=== PATIENT | female | born 1990 | race Native Hawaiian/Other Pacific Islander ===

== ENCOUNTER 2018-03-31 19:12 | Inpatient (IN) | payer MEDICAID ==
[~2018-03-31] VITALS: Ht 175.3 cm; Wt 165.7 kg
[2018-03-31 20:05] LABS: INFLUENZA TYPE A NEGATIVE FOR TYPE A (NEGATIVE); INFLUENZA TYPE B NEGATIVE FOR TYPE B (NEGATIVE)
[2018-03-31] MEDS ORDERED: ALBUTEROL SULFATE 2.5 MG/0.5 ML NEB SOLUTION NEB ONE (21:30)
[2018-03-31] MEDS ORDERED: SODIUM CHLORIDE 0.9% 1,000 ML IV ONE (21:30)
[2018-03-31] MEDS ORDERED: IPRATROPIUM BROMIDE 0.5 MG/2.5 ML NEB SOLUTION NEB ONE (21:30)
[2018-03-31] MEDS ORDERED: CloNIDine HCL 0.2 MG TABLET PO ONE (21:45)
[2018-03-31 21:58] LABS: LYMPHOCYTES # (AUTO) 1.1 K/uL (1.0-4.8); MONOCYTES # (AUTO) 0.4 K/uL (0.1-1.0); RED CELL DISTRIBUTION WIDTH 16.6 % (11.5-14.5)
[2018-03-31 22:02] LABS: BASOPHILS % (AUTO) 0.6 % (0.0-2.0); EOSINOPHILS % (AUTO) 1.9 % (1.0-6.0); LYMPHOCYTES % (AUTO) 16.5 % (22.0-44.0); MEAN CORPUSCULAR HEMOGLOBIN 22.9 pg (26.0-34.0); MEAN CORPUSCULAR HGB CONC 31.9 G/dL (31.0-37.0); MEAN CORPUSCULAR VOLUME 72 fL (80-100); PLATELET COUNT (AUTO) 227 K/uL (150-450); RED BLOOD CELL COUNT(AUTO) 2.54 MIL/uL (4.00-5.20)
[2018-03-31 22:06] LABS: HEMATOCRIT 18.2 % (36-46); HEMOGLOBIN 5.8 g/dL (12.0-16.0)
[2018-03-31 22:07] LABS: ANION GAP 19 mmol/L (8-16); CALCIUM, TOTAL 8.1 mg/dL (8.8-10.5); CARBON DIOXIDE 15 mmol/L (22-29); CHLORIDE 100 mmol/L (98-107); CREATININE 14.42 mg/dL (0.60-1.30); GLOMERULAR FILTR. RATE CALC 3 mL/min (>60); GLUCOSE,RANDOM 88 mg/dL (70-110); POTASSIUM 5.3 mmol/L (3.5-5.1); SODIUM SERUM 134 mmol/L (136-145); UREA NITROGEN, BLOOD 86 mg/dL (7-18)
[2018-03-31 22:18] LABS: ALANINE AMINOTRANSFERASE 18 U/L (12-78); ALBUMIN 2.7 g/dL (3.4-5.0); ALKALINE PHOSPHATASE 44 U/L (46-116); ASPARTATE AMINOTRANSFERASE 15 U/L (15-37); BILIRUBIN,TOTAL 0.3 mg/dL (0.1-1.0); HCG,QUANTITATIVE < 1 mIU/mL (0-6); TOTAL PROTEIN, SERUM 6.7 g/dL (6.4-8.2)
[2018-03-31] MEDS ORDERED: AZITHROMYCIN 250 MG TABLET PO ONE (22:30)
[2018-03-31 22:46] LABS: APPEARANCE,URINE CLOUDY (CLEAR); BILIRUBIN,URINE NEGATIVE (NEGATIVE); GLUCOSE, URINE (UA) NEGATIVE (NEGATIVE); KETONES,URINE NEGATIVE (NEGATIVE); LEUKOCYTE ESTERASE ,URINE TRACE (NEGATIVE); NITRATE,URINE NEGATIVE (NEGATIVE); OCCULT BLOOD,URINE LARGE (NEGATIVE); PROTEIN,URINE SEE CONFIRM (NEGATIVE); UROBILINOGEN,URINE 0.2 mg/dL (<=1.0)
[2018-03-31 23:03] LABS: RBC,URINE 51-100 /HPF (0-2)
[2018-03-31 23:04] LABS: BACTERIA,URINE Moderate /HPF (None Seen); WBC,URINE 26-50 /HPF (0-5)
[2018-03-31 23:05] LABS: SQUAMOUS EPITHELIAL CELL,UR Moderate /LPF (None Seen)
[2018-03-31 23:06] LABS: FINE GRANULAR CASTS,URINE 0-2 /LPF (None Seen); HYALINE CASTS, URINE 0-2 /LPF (None Seen); SULFOSALICYLIC ACID,URINE 4+ (Negative)
[2018-03-31 23:19] LABS: D-DIMER 4.16 mg/L FEU (0.00-0.50); PROTHROMBIN TIME 10.3 SEC (9.4-11.6)
[2018-03-31 23:42] VITALS: BP 140/74
[2018-03-31 23:47] VITALS: BP 134/79
[2018-04-01] VITALS (18 sets, daily range): BP systolic 131–160; BP diastolic 56–111
[2018-04-01 00:10] LABS: OCCULT BLOOD,GASTRIC FLUID POSITIVE (NEGATIVE)
[2018-04-01] MEDS ORDERED: ENOXAPARIN SODIUM 80 MG/0.8 ML PF SYRINGE SQ ONE (00:15)
[2018-04-01] MEDS ORDERED: PENTETATE DTPA TC99M/MCL ISOTOPE 1 EA INJ INJ ONE (02:20)
[2018-04-01] MEDS ORDERED: MAA ALBUMIN AGGREGATED TC99M/UD<10MCL ISOTOPE 1 EA INJ INJ ONE (02:35)
[2018-04-01] MEDS ORDERED: FUROSEMIDE 20 MG TABLET PO ONE (05:00)
[2018-04-01] MEDS ORDERED: AMOX TR/POT CLAV 875 MG/125 MG TABLET PO ONE (05:00)
[2018-04-01 05:54] LABS: CALCIUM, TOTAL 7.9 mg/dL (8.8-10.5); CREATININE 14.35 mg/dL (0.60-1.30); POTASSIUM 5.6 mmol/L (3.5-5.1)
[2018-04-01 06:46] LABS: BASOPHILS % (AUTO) 0.5 % (0.0-2.0); EOSINOPHILS % (AUTO) 2.1 % (1.0-6.0); LYMPHOCYTES # (AUTO) 1.2 K/uL (1.0-4.8); LYMPHOCYTES % (AUTO) 19.4 % (22.0-44.0); MEAN CORPUSCULAR HEMOGLOBIN 23.8 pg (26.0-34.0); MEAN CORPUSCULAR HGB CONC 31.8 G/dL (31.0-37.0); MEAN CORPUSCULAR VOLUME 75 fL (80-100); MONOCYTES # (AUTO) 0.4 K/uL (0.1-1.0); MONOCYTES % (AUTO) 6.8 % (2.0-9.0); NEUTROPHILS # (AUTO) 4.5 K/uL (1.8-7.7); NEUTROPHILS % (AUTO) 71.2 % (40.0-70.0); PLATELET COUNT (AUTO) 199 K/uL (150-450); RED BLOOD CELL COUNT(AUTO) 2.49 MIL/uL (4.00-5.20); RED CELL DISTRIBUTION WIDTH 17.2 % (11.5-14.5)
[2018-04-01 06:47] LABS: HEMOGLOBIN 5.9 g/dL (12.0-16.0)
[2018-04-01 06:48] LABS: HEMATOCRIT 18.6 % (36-46)
[2018-04-01 08:56] LABS: EOSINOPHILS % (AUTO) 2.7 % (1.0-6.0); HEMATOCRIT 21.9 % (36-46); HEMOGLOBIN 7.1 g/dL (12.0-16.0); LYMPHOCYTES # (AUTO) 1.4 K/uL (1.0-4.8); MEAN CORPUSCULAR HEMOGLOBIN 24.6 pg (26.0-34.0); MEAN CORPUSCULAR HGB CONC 32.3 G/dL (31.0-37.0); MEAN CORPUSCULAR VOLUME 76 fL (80-100); MONOCYTES # (AUTO) 0.4 K/uL (0.1-1.0); MONOCYTES % (AUTO) 6.5 % (2.0-9.0); NEUTROPHILS # (AUTO) 4.6 K/uL (1.8-7.7); NEUTROPHILS % (AUTO) 68.8 % (40.0-70.0); PLATELET COUNT (AUTO) 220 K/uL (150-450); RED BLOOD CELL COUNT(AUTO) 2.88 MIL/uL (4.00-5.20)
[2018-04-01 10:05] LABS: ALBUMIN 2.6 g/dL (3.4-5.0); BILIRUBIN,DIRECT 0.1 mg/dL (0.00-0.20); BILIRUBIN,TOTAL 0.5 mg/dL (0.1-1.0); TOTAL PROTEIN, SERUM 6.6 g/dL (6.4-8.2)
[2018-04-01] MEDS ORDERED: SODIUM CHLORIDE 0.9% 100 ML ONE (10:15)
[2018-04-01] MEDS: CefTRIAXone 1 GM/DEXTROSE 50 ML IV SCH (10:29)
[2018-04-01] MEDS: VITAMIN B COMP/VIT C/FOLIC ACID CAPSULE PO SCH (10:29)
[2018-04-01] MEDS: SOD FERRIC GLUC COMPLX/SUCROSE 125 MG in SODIUM CHLORIDE 0.9% 100 ML IV SCH (11:43)
[2018-04-01] MEDS ORDERED: FERROUS SULFATE 325 MG EC TABLET PO SCH (12:00)
[2018-04-01] MEDS ORDERED: SODIUM POLYSTYRENE SULFONATE 15 GM/60 ML SUSPENSION BOTTLE PO ONE (12:15)
[2018-04-02] VITALS (10 sets, daily range): BP systolic 145–181; BP diastolic 89–112
[2018-04-02 07:06] LABS: BASOPHILS % (AUTO) 0.5 % (0.0-2.0); EOSINOPHILS % (AUTO) 1.8 % (1.0-6.0); HEMATOCRIT 21.2 % (36-46); LYMPHOCYTES # (AUTO) 0.8 K/uL (1.0-4.8); LYMPHOCYTES % (AUTO) 11.2 % (22.0-44.0); MEAN CORPUSCULAR HEMOGLOBIN 24.4 pg (26.0-34.0); MEAN CORPUSCULAR HGB CONC 32.3 G/dL (31.0-37.0); MEAN CORPUSCULAR VOLUME 75 fL (80-100); MONOCYTES # (AUTO) 0.6 K/uL (0.1-1.0); MONOCYTES % (AUTO) 7.4 % (2.0-9.0); NEUTROPHILS # (AUTO) 5.9 K/uL (1.8-7.7); NEUTROPHILS % (AUTO) 79.1 % (40.0-70.0); PLATELET COUNT (AUTO) 207 K/uL (150-450); RED CELL DISTRIBUTION WIDTH 17.9 % (11.5-14.5)
[2018-04-02 07:26] LABS: HEMOGLOBIN 6.8 g/dL (12.0-16.0)
[2018-04-02] MEDS: VITAMIN B COMP/VIT C/FOLIC ACID CAPSULE PO SCH (07:49)
[2018-04-02] MEDS: CefTRIAXone 1 GM/DEXTROSE 50 ML IV SCH (07:50)
[2018-04-02] MEDS ORDERED: SODIUM CHLORIDE 0.9% 250 ML IV ONE (08:28)
[2018-04-02] MEDS ORDERED: SODIUM CHLORIDE 0.9% 1,000 ML IV ONE ×2 (10:00→10:29)
[2018-04-02 11:23] LABS: HIV 1-2 SCREEN 4TH GEN W/RFLX Non Reactive (Non Reactive)
[2018-04-02] MEDS ORDERED: SODIUM POLYSTYRENE SULFONATE 15 GM/60 ML SUSPENSION BOTTLE PO ONE ×2 (11:45→13:45)
[2018-04-02] MEDS ORDERED: MIDAZOLAM HCL 2 MG/2 ML VIAL IVP ONE (12:00)
[2018-04-02 12:37] LABS: CALCIUM, TOTAL 8.2 mg/dL (8.8-10.5); CREATININE 15.29 mg/dL (0.60-1.30); POTASSIUM 5.8 mmol/L (3.5-5.1)
[2018-04-02] MEDS: SOD FERRIC GLUC COMPLX/SUCROSE 125 MG in SODIUM CHLORIDE 0.9% 100 ML IV SCH (13:38)
[2018-04-02] MEDS: EPOETIN ALFA 10,000 UNITS/ML VIAL SQ SCH (13:39)
[2018-04-02] MEDS: FAMOTIDINE 20 MG TABLET PO SCH (21:25)
[2018-04-02 21:59] LABS: CREATININE,SERUM FOR CRCL 15.29 mg/dL (0.60-1.30)
[2018-04-03 04:38] VITALS: BP 139/94
[2018-04-03 06:58] LABS: BASOPHILS % (AUTO) 0.5 % (0.0-2.0); EOSINOPHILS % (AUTO) 4.1 % (1.0-6.0); HEMATOCRIT 21.5 % (36-46); LYMPHOCYTES # (AUTO) 1.3 K/uL (1.0-4.8); LYMPHOCYTES % (AUTO) 19.9 % (22.0-44.0); MEAN CORPUSCULAR HEMOGLOBIN 24.8 pg (26.0-34.0); MEAN CORPUSCULAR HGB CONC 32.5 G/dL (31.0-37.0); MEAN CORPUSCULAR VOLUME 76 fL (80-100); MONOCYTES # (AUTO) 0.6 K/uL (0.1-1.0); MONOCYTES % (AUTO) 9.7 % (2.0-9.0); NEUTROPHILS # (AUTO) 4.4 K/uL (1.8-7.7); NEUTROPHILS % (AUTO) 65.8 % (40.0-70.0); PLATELET COUNT (AUTO) 188 K/uL (150-450); RED BLOOD CELL COUNT(AUTO) 2.82 MIL/uL (4.00-5.20); RED CELL DISTRIBUTION WIDTH 17.4 % (11.5-14.5)
[2018-04-03 07:15] LABS: CALCIUM, TOTAL 7.8 mg/dL (8.8-10.5); CREATININE 15.44 mg/dL (0.60-1.30); POTASSIUM 5.1 mmol/L (3.5-5.1)
[2018-04-03] MEDS ORDERED: SODIUM CHLORIDE 0.9% 500 ML IV ONE (08:07)
[2018-04-03] MEDS: CefTRIAXone 1 GM/DEXTROSE 50 ML IV SCH (08:15)
[2018-04-03 08:54] VITALS: BP 151/96
[2018-04-03] MEDS ORDERED: LIDOCAINE/PF 1% 30 ML VIAL ONE (09:24)
[2018-04-03] MEDS ORDERED: HEPARIN SODIUM 1000 UNITS/NS 500 ML ONE (09:25)
[2018-04-03] MEDS ORDERED: HEPARIN SODIUM,PORCINE 1,000 UNITS/ML 10 ML VIAL ONE (09:25)
[2018-04-03] MEDS: SOD FERRIC GLUC COMPLX/SUCROSE 125 MG in SODIUM CHLORIDE 0.9% 100 ML IV SCH (09:28)
[2018-04-03] MEDS ORDERED: HEPARIN SODIUM,PORCINE 1,000 UNITS/ML VIAL IVP ONE (11:41)
[2018-04-03 12:08] VITALS: BP 158/96
[2018-04-03] MEDS: FAMOTIDINE 20 MG TABLET PO SCH ×2 (12:20→21:00)
[2018-04-03] MEDS: VITAMIN B COMP/VIT C/FOLIC ACID CAPSULE PO SCH (12:20)
[2018-04-03 15:09] VITALS: BP 157/101
[2018-04-03] MEDS ORDERED: SODIUM CHLORIDE 0.9% 1,000 ML IV ONE ×2 (19:31)
[2018-04-03 20:11] VITALS: BP 181/104
[2018-04-04] VITALS (14 sets, daily range): BP systolic 134–160; BP diastolic 67–114
[2018-04-04] MEDS ORDERED: SODIUM CHLORIDE 0.9% 1,000 ML IV ONE ×2 (07:55)
[2018-04-04] MEDS: CefTRIAXone 1 GM/DEXTROSE 50 ML IV SCH (08:15)
[2018-04-04 08:16] LABS: BASOPHILS % (AUTO) 0.5 % (0.0-2.0); EOSINOPHILS % (AUTO) 3.6 % (1.0-6.0); LYMPHOCYTES # (AUTO) 1.2 K/uL (1.0-4.8); LYMPHOCYTES % (AUTO) 21.4 % (22.0-44.0); MEAN CORPUSCULAR HEMOGLOBIN 24.7 pg (26.0-34.0); MEAN CORPUSCULAR HGB CONC 32.9 G/dL (31.0-37.0); MEAN CORPUSCULAR VOLUME 75 fL (80-100); MONOCYTES # (AUTO) 0.5 K/uL (0.1-1.0); MONOCYTES % (AUTO) 8.9 % (2.0-9.0); NEUTROPHILS # (AUTO) 3.7 K/uL (1.8-7.7); NEUTROPHILS % (AUTO) 65.6 % (40.0-70.0); PLATELET COUNT (AUTO) 154 K/uL (150-450); RED CELL DISTRIBUTION WIDTH 17.3 % (11.5-14.5)
[2018-04-04 08:30] LABS: HEMOGLOBIN 6.9 g/dL (12.0-16.0)
[2018-04-04] MEDS: SOD FERRIC GLUC COMPLX/SUCROSE 125 MG in SODIUM CHLORIDE 0.9% 100 ML IV SCH (08:30)
[2018-04-04] MEDS: FAMOTIDINE 20 MG TABLET PO SCH ×2 (09:51→21:20)
[2018-04-04] MEDS: VITAMIN B COMP/VIT C/FOLIC ACID CAPSULE PO SCH (09:51)
[2018-04-04] MEDS: EPOETIN ALFA 10,000 UNITS/ML VIAL SQ SCH (09:52)
[2018-04-04] MEDS ORDERED: HEPARIN SODIUM,PORCINE 1,000 UNITS/ML VIAL IVP ONE ×2 (10:52→12:00)
[2018-04-04] MEDS ORDERED: LIDOCAINE/PF 1% 30 ML VIAL ONE (12:22)
[2018-04-04] MEDS ORDERED: HEPARIN SODIUM,PORCINE 1,000 UNITS/ML 10 ML VIAL ONE (12:22)
[2018-04-04] MEDS ORDERED: HEPARIN SODIUM 1000 UNITS/NS 500 ML ONE (12:22)
[2018-04-04] MEDS ORDERED: FentaNYL CITRATE-PF 100 MCG/2 ML VIAL ONE (13:23)
[2018-04-04] MEDS ORDERED: MIDAZOLAM HCL 2 MG/2 ML VIAL ONE (13:24)
[2018-04-04] MEDS ORDERED: FLUMAZENIL 0.1 MG/ML 5 ML VIAL IVP ONE (13:24)
[2018-04-04] MEDS ORDERED: NALOXONE HCL 0.4 MG/ML VIAL ONE (13:24)
[2018-04-04] MEDS ORDERED: FentaNYL CITRATE-PF 100 MCG/2 ML VIAL IVP ONE (13:56)
[2018-04-04] MEDS ORDERED: MIDAZOLAM HCL 2 MG/2 ML VIAL IVP ONE (13:56)
[2018-04-04] MEDS ORDERED: SODIUM CHLORIDE 0.9% 250 ML IV ONE (16:54)
[2018-04-05 03:48] VITALS: BP 156/103
[2018-04-05 07:20] LABS: BASOPHILS % (AUTO) 0.6 % (0.0-2.0); EOSINOPHILS % (AUTO) 4.1 % (1.0-6.0); HEMATOCRIT 22.7 % (36-46); HEMOGLOBIN 7.6 g/dL (12.0-16.0); LYMPHOCYTES # (AUTO) 1.1 K/uL (1.0-4.8); LYMPHOCYTES % (AUTO) 19.9 % (22.0-44.0); MEAN CORPUSCULAR HEMOGLOBIN 25.5 pg (26.0-34.0); MEAN CORPUSCULAR HGB CONC 33.5 G/dL (31.0-37.0); MEAN CORPUSCULAR VOLUME 76 fL (80-100); MONOCYTES # (AUTO) 0.5 K/uL (0.1-1.0); MONOCYTES % (AUTO) 8.7 % (2.0-9.0); NEUTROPHILS # (AUTO) 3.7 K/uL (1.8-7.7); NEUTROPHILS % (AUTO) 66.7 % (40.0-70.0); PLATELET COUNT (AUTO) 184 K/uL (150-450); RED BLOOD CELL COUNT(AUTO) 2.98 MIL/uL (4.00-5.20); RED CELL DISTRIBUTION WIDTH 17.8 % (11.5-14.5)
[2018-04-05 07:37] LABS: CREATININE 8.79 mg/dL (0.60-1.30); PHOSPHORUS 6.1 mg/dL (2.5-4.9); POTASSIUM 3.6 mmol/L (3.5-5.1)
[2018-04-05] MEDS: SOD FERRIC GLUC COMPLX/SUCROSE 125 MG in SODIUM CHLORIDE 0.9% 100 ML IV SCH (08:30)
[2018-04-05 08:35] VITALS: BP 176/111
[2018-04-05] MEDS: AmLODIPine BESYLATE 10 MG TABLET PO SCH (10:59)
[2018-04-05] MEDS: VITAMIN B COMP/VIT C/FOLIC ACID CAPSULE PO SCH (10:59)
[2018-04-05] MEDS: SEVELAMER CARBONATE 800 MG TABLET PO SCH ×2 (10:59→17:58)
[2018-04-05] MEDS: CefTRIAXone 1 GM/DEXTROSE 50 ML IV SCH (10:59)
[2018-04-05] MEDS: FAMOTIDINE 20 MG TABLET PO SCH ×2 (10:59→20:19)
[2018-04-05] MEDS ORDERED: SODIUM CHLORIDE 0.9% 100 ML ONE (11:04)
[2018-04-05 11:29] VITALS: BP 146/85
[2018-04-05 15:44] VITALS: BP 136/69
[2018-04-05] MEDS ORDERED: HEPARIN SODIUM,PORCINE 1,000 UNITS/ML VIAL IVP ONE (17:43)
[2018-04-05 19:44] VITALS: BP 154/89
[2018-04-05 23:23] VITALS: BP 159/117
[2018-04-06] VITALS (7 sets, daily range): BP systolic 139–161; BP diastolic 88–104
[2018-04-06 07:35] LABS: CALCIUM, TOTAL 8.1 mg/dL (8.8-10.5); POTASSIUM 3.5 mmol/L (3.5-5.1)
[2018-04-06] MEDS: CefTRIAXone 1 GM/DEXTROSE 50 ML IV SCH (08:56)
[2018-04-06] MEDS: FAMOTIDINE 20 MG TABLET PO SCH ×2 (08:57→20:02)
[2018-04-06] MEDS: VITAMIN B COMP/VIT C/FOLIC ACID CAPSULE PO SCH (08:57)
[2018-04-06] MEDS: AmLODIPine BESYLATE 10 MG TABLET PO SCH (08:58)
[2018-04-06] MEDS: SEVELAMER CARBONATE 800 MG TABLET PO SCH ×3 (08:59→17:53)
[2018-04-06] MEDS ORDERED: SODIUM CHLORIDE 0.9% 250 ML IV ONE (09:07)
[2018-04-06] MEDS ORDERED: LOSARTAN POTASSIUM 50 MG TABLET PO ONE (17:15)
[2018-04-07 04:08] VITALS: BP 149/94
[2018-04-07 07:33] LABS: CREATININE 9.79 mg/dL (0.60-1.30); PHOSPHORUS 6.4 mg/dL (2.5-4.9); POTASSIUM 3.6 mmol/L (3.5-5.1)
[2018-04-07 07:36] VITALS: BP 116/83
[2018-04-07] MEDS: SEVELAMER CARBONATE 800 MG TABLET PO SCH ×3 (09:17→17:49)
[2018-04-07] MEDS: VITAMIN B COMP/VIT C/FOLIC ACID CAPSULE PO SCH (09:17)
[2018-04-07] MEDS: LOSARTAN POTASSIUM 50 MG TABLET PO SCH ×2 (09:18→20:30)
[2018-04-07] MEDS: AmLODIPine BESYLATE 10 MG TABLET PO SCH (09:18)
[2018-04-07] MEDS: FAMOTIDINE 20 MG TABLET PO SCH ×2 (09:18→20:30)
[2018-04-07] MEDS: EPOETIN ALFA 10,000 UNITS/ML VIAL SQ SCH (09:19)
[2018-04-07 11:11] VITALS: BP 139/98
[2018-04-07] MEDS: MethylPREDNISolone SOD SUCC 1,000 MG in SODIUM CHLORIDE 0.9% 50 ML IV SCH (13:38)
[2018-04-07 16:56] VITALS: BP 149/102
[2018-04-07 20:09] VITALS: BP 147/103
[2018-04-08] VITALS (10 sets, daily range): BP systolic 133–165; BP diastolic 79–113
[2018-04-08] MEDS: CloNIDine HCL 0.1 MG TABLET PO PRN (00:15)
[2018-04-08] MEDS ORDERED: [UNRECOGNIZED DRUG - REMARK] IV PRN (07:30)
[2018-04-08] MEDS: SEVELAMER CARBONATE 800 MG TABLET PO SCH ×3 (08:00→21:04)
[2018-04-08] MEDS: AmLODIPine BESYLATE 10 MG TABLET PO SCH (09:00)
[2018-04-08] MEDS: VITAMIN B COMP/VIT C/FOLIC ACID CAPSULE PO SCH (09:00)
[2018-04-08] MEDS: FAMOTIDINE 20 MG TABLET PO SCH ×2 (09:00→21:04)
[2018-04-08] MEDS: LOSARTAN POTASSIUM 50 MG TABLET PO SCH ×2 (09:00→21:04)
[2018-04-08 09:59] LABS: PROTHROMBIN TIME 10.6 SEC (9.4-11.6)
[2018-04-08] MEDS ORDERED: FLUMAZENIL 0.1 MG/ML 5 ML VIAL IVP ONE (10:58)
[2018-04-08] MEDS ORDERED: NALOXONE HCL 0.4 MG/ML VIAL ONE (10:58)
[2018-04-08] MEDS ORDERED: FentaNYL CITRATE-PF 100 MCG/2 ML VIAL ONE (10:58)
[2018-04-08] MEDS ORDERED: LIDOCAINE 1%/EPI 1:200,000/PF 10 ML VIAL ONE (10:58)
[2018-04-08] MEDS ORDERED: MIDAZOLAM HCL 2 MG/2 ML VIAL ONE (10:58)
[2018-04-08] MEDS ORDERED: SODIUM BICARBONATE 50 MEQ/50 ML VIAL ONE (10:59)
[2018-04-08] MEDS ORDERED: GELATIN SPONGE,ABSORBABLE 12-7 MM TP ONE (10:59)
[2018-04-08] MEDS ORDERED: CALCIUM GLUCONATE IV PRN (11:00)
[2018-04-08] MEDS ORDERED: SODIUM CHLORIDE 0.9% IV PRN (11:00)
[2018-04-08] MEDS ORDERED: HEPARIN SODIUM,PORCINE 1,000 UNITS/ML VIAL IVP ONE (12:00)
[2018-04-08 12:15] LABS: BASOPHILS % (AUTO) 0.1 % (0.0-2.0); EOSINOPHILS % (AUTO) 0 % (1.0-6.0); HEMATOCRIT 25.2 % (36-46); HEMOGLOBIN 8.2 g/dL (12.0-16.0); LYMPHOCYTES # (AUTO) 0.7 K/uL (1.0-4.8); LYMPHOCYTES % (AUTO) 7.9 % (22.0-44.0); MEAN CORPUSCULAR HGB CONC 32.5 G/dL (31.0-37.0); MEAN CORPUSCULAR VOLUME 77 fL (80-100); MONOCYTES # (AUTO) 0.2 K/uL (0.1-1.0); MONOCYTES % (AUTO) 2.1 % (2.0-9.0); NEUTROPHILS # (AUTO) 7.5 K/uL (1.8-7.7); PLATELET COUNT (AUTO) 205 K/uL (150-450); RED BLOOD CELL COUNT(AUTO) 3.27 MIL/uL (4.00-5.20); RED CELL DISTRIBUTION WIDTH 17.9 % (11.5-14.5)
[2018-04-08 12:17] LABS: NEUTROPHILS % (AUTO) 89.9 % (40.0-70.0)
[2018-04-08] MEDS ORDERED: SODIUM CHLORIDE 0.9% 1,000 ML IV ONE ×2 (16:54→17:37)
[2018-04-08] MEDS ORDERED: SODIUM CHLORIDE 0.9% 250 ML IV ONE (20:54)
[2018-04-08] MEDS: MethylPREDNISolone SOD SUCC 1,000 MG in SODIUM CHLORIDE 0.9% 50 ML IV SCH (21:05)
[2018-04-09] VITALS (16 sets, daily range): BP systolic 128–166; BP diastolic 77–116
[2018-04-09] MEDS: SEVELAMER CARBONATE 800 MG TABLET PO SCH ×3 (08:00→18:09)
[2018-04-09] MEDS: AmLODIPine BESYLATE 10 MG TABLET PO SCH (08:10)
[2018-04-09] MEDS: FAMOTIDINE 20 MG TABLET PO SCH ×2 (08:10→22:38)
[2018-04-09] MEDS: LOSARTAN POTASSIUM 50 MG TABLET PO SCH ×2 (08:10→22:38)
[2018-04-09] MEDS: VITAMIN B COMP/VIT C/FOLIC ACID CAPSULE PO SCH (08:10)
[2018-04-09 08:56] LABS: CREATININE 10.86 mg/dL (0.60-1.30); POTASSIUM 4.4 mmol/L (3.5-5.1)
[2018-04-09] MEDS: EPOETIN ALFA 10,000 UNITS/ML VIAL SQ SCH (09:03)
[2018-04-09] MEDS ORDERED: NALOXONE HCL 0.4 MG/ML VIAL ONE (10:32)
[2018-04-09] MEDS ORDERED: FentaNYL CITRATE-PF 100 MCG/2 ML VIAL ONE (10:32)
[2018-04-09] MEDS ORDERED: MIDAZOLAM HCL 2 MG/2 ML VIAL ONE (10:32)
[2018-04-09] MEDS ORDERED: GELATIN SPONGE,ABSORBABLE 12-7 MM TP ONE (10:33)
[2018-04-09] MEDS ORDERED: LIDOCAINE/PF 1% 30 ML VIAL ONE (10:33)
[2018-04-09] MEDS ORDERED: FLUMAZENIL 0.1 MG/ML 5 ML VIAL IVP ONE (10:33)
[2018-04-09] MEDS ORDERED: SODIUM BICARBONATE 50 MEQ/50 ML VIAL ONE (10:33)
[2018-04-09] MEDS ORDERED: LABETALOL HCL 5 MG/ML 20 ML VIAL IVP ONE ×2 (11:49→11:53)
[2018-04-09] MEDS: MethylPREDNISolone SOD SUCC 1,000 MG in SODIUM CHLORIDE 0.9% 50 ML IV SCH (13:11)
[2018-04-09] MEDS ORDERED: CITRATE DEXTROSE IV PRN (15:30)
[2018-04-09] MEDS ORDERED: ALBUMIN HUMAN IV ONE (16:30)
[2018-04-09] MEDS ORDERED: SODIUM CHLORIDE 0.9% 3,000 ML IV ONE (18:02)
[2018-04-09] MEDS: CloNIDine HCL 0.1 MG TABLET PO PRN (23:56)
[2018-04-10 04:49] VITALS: BP 142/91
[2018-04-10 06:53] LABS: BAND NEUTROPHILS % (MANUAL) 0 % (0-5)
[2018-04-10 06:59] LABS: BASOPHILS % (AUTO) 0.1 % (0.0-2.0); EOSINOPHILS % (AUTO) 0 % (1.0-6.0); HEMATOCRIT 26.9 % (36-46); LYMPHOCYTES # (AUTO) 0.9 K/uL (1.0-4.8); MEAN CORPUSCULAR HEMOGLOBIN 26.6 pg (26.0-34.0); MEAN CORPUSCULAR HGB CONC 33.6 G/dL (31.0-37.0); MEAN CORPUSCULAR VOLUME 79 fL (80-100); MONOCYTES # (AUTO) 0.7 K/uL (0.1-1.0); MONOCYTES % (AUTO) 6.1 % (2.0-9.0); NEUTROPHILS # (AUTO) 9.8 K/uL (1.8-7.7); PLATELET COUNT (AUTO) 179 K/uL (150-450); RED BLOOD CELL COUNT(AUTO) 3.39 MIL/uL (4.00-5.20); RED CELL DISTRIBUTION WIDTH 18.2 % (11.5-14.5)
[2018-04-10 07:17] LABS: NEUTROPHILS % (AUTO) 85.8 % (40.0-70.0)
[2018-04-10 07:18] VITALS: BP 131/76
[2018-04-10 07:26] LABS: CREATININE 11.1 mg/dL (0.60-1.30); POTASSIUM 4.3 mmol/L (3.5-5.1)
[2018-04-10] MEDS: VITAMIN B COMP/VIT C/FOLIC ACID CAPSULE PO SCH (08:03)
[2018-04-10] MEDS: SEVELAMER CARBONATE 800 MG TABLET PO SCH ×2 (08:03→11:32)
[2018-04-10] MEDS: LOSARTAN POTASSIUM 50 MG TABLET PO SCH (08:03)
[2018-04-10] MEDS: AmLODIPine BESYLATE 10 MG TABLET PO SCH (08:04)
[2018-04-10] MEDS: FAMOTIDINE 20 MG TABLET PO SCH (08:04)
[2018-04-10 10:33] LABS: LYMPHOCYTES % (MANUAL) 10 % (22-44); MONOCYTES % (MANUAL) 6 % (2-9); SEGMENTED NEUTROPHILS % 84 % (40-70)
[2018-04-10] MEDS ORDERED: DEXTROSE 50%-WATER 25 GM/50 ML SYRINGE IVP PRN (10:45)
[2018-04-10 11:11] VITALS: BP 145/101
[2018-04-10] MEDS: INSULIN LISPRO 100 UNITS/ML SQ PRN ×2 (11:34→17:10)
[2018-04-10 12:13] LABS: GLUCOMETER DEV NAME(LOC) 5S.2; GLUCOSE,POINT OF CARE 344 MG/DL (70-110)
[2018-04-10] MEDS ORDERED: CITRATE DEXTROSE IV ONE (12:30)
[2018-04-10] MEDS ORDERED: SODIUM CHLORIDE 0.9% IV ONE (12:30)
[2018-04-10] MEDS ORDERED: ALBUMIN HUMAN 5%-12.5GM/250ML 0 ML IV ONE ×2 (12:45→13:00)
[2018-04-10 15:13] VITALS: BP 127/93
[2018-04-10] MEDS ORDERED: ALBUMIN HUMAN IV ONE (16:30)
[2018-04-10] MEDS ORDERED: CALCIUM GLUCONATE 100 MG/ML 10 ML IVP ONE (18:39)
[2018-04-10 19:47] VITALS: BP 139/100
[2018-04-10 20:15] LABS: GLUCOMETER DEV NAME(LOC) 5S.2; GLUCOSE,POINT OF CARE 241 MG/DL (70-110)
[2018-04-10 22:29] LABS: GLUCOMETER DEV NAME(LOC) 5S.2; GLUCOSE,POINT OF CARE 236 MG/DL (70-110)
[2018-04-10 23:57] VITALS: BP 145/98
[2018-04-11] MEDS: SEVELAMER CARBONATE 800 MG TABLET PO SCH ×3 (00:04→11:41)
[2018-04-11] MEDS: FAMOTIDINE 20 MG TABLET PO SCH ×3 (00:05→20:02)
[2018-04-11] MEDS: LOSARTAN POTASSIUM 50 MG TABLET PO SCH ×3 (00:07→20:02)
[2018-04-11] MEDS: INSULIN LISPRO 100 UNITS/ML SQ PRN (00:10)
[2018-04-11 05:31] VITALS: BP 149/96
[2018-04-11 06:08] LABS: BASOPHILS % (AUTO) 0.1 % (0.0-2.0); EOSINOPHILS % (AUTO) 0.1 % (1.0-6.0); HEMATOCRIT 26.1 % (36-46); HEMOGLOBIN 8.8 g/dL (12.0-16.0); LYMPHOCYTES # (AUTO) 1.9 K/uL (1.0-4.8); LYMPHOCYTES % (AUTO) 12.7 % (22.0-44.0); MEAN CORPUSCULAR HEMOGLOBIN 25.9 pg (26.0-34.0); MEAN CORPUSCULAR HGB CONC 33.6 G/dL (31.0-37.0); MEAN CORPUSCULAR VOLUME 77 fL (80-100); MONOCYTES # (AUTO) 1.7 K/uL (0.1-1.0); NEUTROPHILS # (AUTO) 11.4 K/uL (1.8-7.7); NEUTROPHILS % (AUTO) 76.1 % (40.0-70.0); PLATELET COUNT (AUTO) 205 K/uL (150-450); RED BLOOD CELL COUNT(AUTO) 3.39 MIL/uL (4.00-5.20); RED CELL DISTRIBUTION WIDTH 18.2 % (11.5-14.5)
[2018-04-11 06:31] LABS: CALCIUM, TOTAL 7.8 mg/dL (8.8-10.5); CREATININE 11.03 mg/dL (0.60-1.30); PHOSPHORUS 8.2 mg/dL (2.5-4.9); POTASSIUM 4.6 mmol/L (3.5-5.1)
[2018-04-11 07:47] VITALS: BP 119/80
[2018-04-11] MEDS: AmLODIPine BESYLATE 10 MG TABLET PO SCH (08:02)
[2018-04-11] MEDS: VITAMIN B COMP/VIT C/FOLIC ACID CAPSULE PO SCH (08:02)
[2018-04-11] MEDS: EPOETIN ALFA 10,000 UNITS/ML VIAL SQ SCH (08:03)
[2018-04-11] MEDS: PANTOPRAZOLE SODIUM 40 MG/VIAL IVP SCH (09:00)
[2018-04-11] MEDS ORDERED: CALCIUM GLUCONATE 100 MG/ML 10 ML IVP ONE (10:45)
[2018-04-11] MEDS ORDERED: CITRATE DEXTROSE IV ONE ×2 (10:45→11:15)
[2018-04-11 10:59] LABS: GLUCOMETER DEV NAME(LOC) 5S.2; GLUCOSE,POINT OF CARE 126 MG/DL (70-110)
[2018-04-11] MEDS ORDERED: ALBUMIN HUMAN IV ONE (11:00)
[2018-04-11 11:19] VITALS: BP 149/101
[2018-04-11] MEDS ORDERED: SODIUM CHLORIDE 0.9% 1,000 ML IV SCH (13:03)
[2018-04-11] MEDS ORDERED: SODIUM CHLORIDE 0.9% 1,000 ML IV ONE (13:38)
[2018-04-11 15:36] VITALS: BP 122/68
[2018-04-11 19:25] VITALS: BP 141/87
[2018-04-11 23:22] VITALS: BP 144/94
[2018-04-12 04:31] VITALS: BP 120/67
[2018-04-12 08:06] VITALS: BP 139/97
[2018-04-12] MEDS ORDERED: SODIUM CHLORIDE 0.9% 2,000 ML IV ONE (08:16)
[2018-04-12] MEDS: VITAMIN B COMP/VIT C/FOLIC ACID CAPSULE PO SCH (08:19)
[2018-04-12] MEDS: AmLODIPine BESYLATE 10 MG TABLET PO SCH (08:19)
[2018-04-12] MEDS: PANTOPRAZOLE SODIUM 40 MG/VIAL IVP SCH (08:19)
[2018-04-12] MEDS: FAMOTIDINE 20 MG TABLET PO SCH ×2 (08:19→20:29)
[2018-04-12] MEDS: LOSARTAN POTASSIUM 50 MG TABLET PO SCH ×2 (08:19→20:29)
[2018-04-12 08:43] LABS: BASOPHILS % (AUTO) 0.3 % (0.0-2.0); EOSINOPHILS % (AUTO) 1.1 % (1.0-6.0); HEMATOCRIT 29.4 % (36-46); HEMOGLOBIN 9.5 g/dL (12.0-16.0); LYMPHOCYTES # (AUTO) 2.6 K/uL (1.0-4.8); LYMPHOCYTES % (AUTO) 23.1 % (22.0-44.0); MEAN CORPUSCULAR HEMOGLOBIN 25.7 pg (26.0-34.0); MEAN CORPUSCULAR HGB CONC 32.3 G/dL (31.0-37.0); MEAN CORPUSCULAR VOLUME 80 fL (80-100); MONOCYTES # (AUTO) 1.5 K/uL (0.1-1.0); MONOCYTES % (AUTO) 13.1 % (2.0-9.0); NEUTROPHILS % (AUTO) 62.4 % (40.0-70.0); PLATELET COUNT (AUTO) 214 K/uL (150-450)
[2018-04-12 08:50] LABS: CALCIUM, TOTAL 7.8 mg/dL (8.8-10.5); CREATININE 8.71 mg/dL (0.60-1.30)
[2018-04-12] MEDS ORDERED: ALBUMIN HUMAN IV ONE (09:00)
[2018-04-12] MEDS ORDERED: HEPARIN SODIUM,PORCINE 1,000 UNITS/ML VIAL IVP ONE (11:54)
[2018-04-12 12:11] VITALS: BP 130/77
[2018-04-12 16:19] VITALS: BP 130/89
[2018-04-12 20:32] VITALS: BP 128/80
[2018-04-13] VITALS (7 sets, daily range): BP systolic 115–138; BP diastolic 62–92
[2018-04-13 07:25] LABS: CALCIUM, TOTAL 7.7 mg/dL (8.8-10.5); CREATININE 9.27 mg/dL (0.60-1.30); POTASSIUM 4.2 mmol/L (3.5-5.1)
[2018-04-13] MEDS: AmLODIPine BESYLATE 10 MG TABLET PO SCH (08:26)
[2018-04-13] MEDS: FAMOTIDINE 20 MG TABLET PO SCH ×2 (08:27→20:18)
[2018-04-13] MEDS: VITAMIN B COMP/VIT C/FOLIC ACID CAPSULE PO SCH (08:27)
[2018-04-13] MEDS: LOSARTAN POTASSIUM 50 MG TABLET PO SCH ×2 (09:00→20:18)
[2018-04-13] MEDS: PANTOPRAZOLE SODIUM 40 MG/VIAL IVP SCH (10:30)
[2018-04-13] MEDS ORDERED: ALBUMIN HUMAN IV ONE (11:45)
[2018-04-14 04:34] VITALS: BP 128/71
[2018-04-14 06:25] LABS: BASOPHILS % (AUTO) 0.3 % (0.0-2.0); EOSINOPHILS % (AUTO) 2.4 % (1.0-6.0); HEMATOCRIT 25.6 % (36-46); HEMOGLOBIN 8.5 g/dL (12.0-16.0); LYMPHOCYTES % (AUTO) 20.4 % (22.0-44.0); MEAN CORPUSCULAR HEMOGLOBIN 26.2 pg (26.0-34.0); MEAN CORPUSCULAR HGB CONC 33.1 G/dL (31.0-37.0); MEAN CORPUSCULAR VOLUME 79 fL (80-100); MONOCYTES % (AUTO) 10.1 % (2.0-9.0); NEUTROPHILS # (AUTO) 6.6 K/uL (1.8-7.7); NEUTROPHILS % (AUTO) 66.8 % (40.0-70.0); PLATELET COUNT (AUTO) 190 K/uL (150-450); RED BLOOD CELL COUNT(AUTO) 3.23 MIL/uL (4.00-5.20); RED CELL DISTRIBUTION WIDTH 19.6 % (11.5-14.5)
[2018-04-14 07:23] LABS: ALBUMIN 3.4 g/dL (3.4-5.0); BILIRUBIN,TOTAL 0.3 mg/dL (0.1-1.0); CREATININE 10.89 mg/dL (0.60-1.30); POTASSIUM 4.3 mmol/L (3.5-5.1); TOTAL PROTEIN, SERUM 4.8 g/dL (6.4-8.2)
[2018-04-14 07:50] VITALS: BP 108/64
[2018-04-14] MEDS: FAMOTIDINE 20 MG TABLET PO SCH ×2 (08:12→20:02)
[2018-04-14] MEDS: LOSARTAN POTASSIUM 50 MG TABLET PO SCH ×2 (08:12→20:02)
[2018-04-14] MEDS: VITAMIN B COMP/VIT C/FOLIC ACID CAPSULE PO SCH (08:12)
[2018-04-14] MEDS: EPOETIN ALFA 10,000 UNITS/ML VIAL SQ SCH (08:13)
[2018-04-14] MEDS: AmLODIPine BESYLATE 10 MG TABLET PO SCH (08:13)
[2018-04-14] MEDS: PANTOPRAZOLE SODIUM 40 MG/VIAL IVP SCH (08:14)
[2018-04-14 11:27] VITALS: BP 136/85
[2018-04-14 16:22] VITALS: BP 139/116
[2018-04-14] MEDS ORDERED: HEPARIN SODIUM,PORCINE 1,000 UNITS/ML VIAL IVP ONE (17:15)
[2018-04-14 19:47] VITALS: BP 147/96
[2018-04-14 23:52] VITALS: BP 158/105
[2018-04-15] VITALS (10 sets, daily range): BP systolic 125–150; BP diastolic 73–99
[2018-04-15 06:27] LABS: BASOPHILS % (AUTO) 0.2 % (0.0-2.0); HEMATOCRIT 24.4 % (36-46); HEMOGLOBIN 8.4 g/dL (12.0-16.0); LYMPHOCYTES # (AUTO) 1.6 K/uL (1.0-4.8); LYMPHOCYTES % (AUTO) 18.3 % (22.0-44.0); MEAN CORPUSCULAR HGB CONC 34.5 G/dL (31.0-37.0); MEAN CORPUSCULAR VOLUME 78 fL (80-100); MONOCYTES # (AUTO) 0.9 K/uL (0.1-1.0); MONOCYTES % (AUTO) 10.9 % (2.0-9.0); NEUTROPHILS # (AUTO) 5.8 K/uL (1.8-7.7); NEUTROPHILS % (AUTO) 68.6 % (40.0-70.0); PLATELET COUNT (AUTO) 174 K/uL (150-450); RED BLOOD CELL COUNT(AUTO) 3.12 MIL/uL (4.00-5.20); RED CELL DISTRIBUTION WIDTH 19.6 % (11.5-14.5)
[2018-04-15 06:49] LABS: ALBUMIN 3.3 g/dL (3.4-5.0); BILIRUBIN,TOTAL 0.4 mg/dL (0.1-1.0); CREATININE 8.34 mg/dL (0.60-1.30); POTASSIUM 4.1 mmol/L (3.5-5.1); TOTAL PROTEIN, SERUM 4.9 g/dL (6.4-8.2)
[2018-04-15] MEDS ORDERED: CALCIUM GLUCONATE 100 MG/ML 10 ML IVP ONE (07:30)
[2018-04-15] MEDS ORDERED: CITRATE DEXTROSE IV ONE ×2 (07:30→08:00)
[2018-04-15] MEDS ORDERED: ALBUMIN HUMAN 5%-12.5GM/250ML 0 ML IV ONE (07:30)
[2018-04-15] MEDS ORDERED: ALBUMIN HUMAN IV ONE (08:15)
[2018-04-15] MEDS ORDERED: SODIUM CHLORIDE 0.9% 2,000 ML IV ONE (08:20)
[2018-04-15] MEDS: PANTOPRAZOLE SODIUM 40 MG/VIAL IVP SCH (09:00)
[2018-04-15] MEDS ORDERED: SULFAMETHOX/TRIMETH DS 800-160 MG/TABLET PO SCH (09:00)
[2018-04-15] MEDS: LOSARTAN POTASSIUM 50 MG TABLET PO SCH ×2 (12:40→20:16)
[2018-04-15] MEDS: VITAMIN B COMP/VIT C/FOLIC ACID CAPSULE PO SCH (12:40)
[2018-04-15] MEDS: AmLODIPine BESYLATE 10 MG TABLET PO SCH (12:40)
[2018-04-15] MEDS: FAMOTIDINE 20 MG TABLET PO SCH ×2 (12:40→20:16)
[2018-04-15] MEDS: EPOETIN ALFA 10,000 UNITS/ML VIAL SQ SCH (12:43)
[2018-04-16 05:10] VITALS: BP 144/98
[2018-04-16 07:33] LABS: ALBUMIN 3.8 g/dL (3.4-5.0); BILIRUBIN,TOTAL 0.5 mg/dL (0.1-1.0); CALCIUM, TOTAL 7.8 mg/dL (8.8-10.5); CREATININE 9.23 mg/dL (0.60-1.30); PHOSPHORUS 6.6 mg/dL (2.5-4.9); POTASSIUM 4.3 mmol/L (3.5-5.1)
[2018-04-16 08:33] VITALS: BP 149/96
[2018-04-16] MEDS: LOSARTAN POTASSIUM 50 MG TABLET PO SCH ×2 (09:00→20:25)
[2018-04-16] MEDS: PANTOPRAZOLE SODIUM 40 MG/VIAL IVP SCH (09:00)
[2018-04-16] MEDS: FAMOTIDINE 20 MG TABLET PO SCH ×2 (09:00→20:25)
[2018-04-16 09:01] LABS: BASOPHILS % (AUTO) 0.3 % (0.0-2.0); EOSINOPHILS % (AUTO) 1.9 % (1.0-6.0); HEMATOCRIT 25.7 % (36-46); HEMOGLOBIN 8.3 g/dL (12.0-16.0); LYMPHOCYTES # (AUTO) 1.5 K/uL (1.0-4.8); LYMPHOCYTES % (AUTO) 17.6 % (22.0-44.0); MEAN CORPUSCULAR HGB CONC 32.2 G/dL (31.0-37.0); MEAN CORPUSCULAR VOLUME 81 fL (80-100); MONOCYTES # (AUTO) 0.8 K/uL (0.1-1.0); MONOCYTES % (AUTO) 9.5 % (2.0-9.0); NEUTROPHILS % (AUTO) 70.7 % (40.0-70.0); PLATELET COUNT (AUTO) 179 K/uL (150-450); RED BLOOD CELL COUNT(AUTO) 3.18 MIL/uL (4.00-5.20); RED CELL DISTRIBUTION WIDTH 20.4 % (11.5-14.5)
[2018-04-16 11:19] VITALS: BP 141/74
[2018-04-16] MEDS ORDERED: HEPARIN SODIUM,PORCINE 1,000 UNITS/ML VIAL IVP ONE (12:00)
[2018-04-16 16:42] VITALS: BP 157/87
[2018-04-16] MEDS: AmLODIPine BESYLATE 10 MG TABLET PO SCH (17:12)
[2018-04-16 19:09] VITALS: BP 149/86
== END 2018-04-16 23:30 | disposition short-term general hospital (02) | DRG 462 ==
LOC: EMS 19:13 → 5S 23:31 → 5N 04-14 13:32
PROVIDERS: ADMIT Internal Medicine; ATTEND Internal Medicine
PROC: 30233N1 Transfusion of Nonautologous Red Blood Cells into Peripheral Vein, Percutaneous Approach (ICD-10-PCS; principal; 2018-03-31)
PROC: CB121ZZ Planar Nuclear Medicine Imaging of Lungs and Bronchi using Technetium 99m (Tc-99m) (ICD-10-PCS; 2018-04-01)
PROC: 0DB68ZX Excision of Stomach, Via Natural or Artificial Opening Endoscopic, Diagnostic (ICD-10-PCS; 2018-04-02)
PROC: 2Y41X5Z Packing of Nasal Region using Packing Material (ICD-10-PCS; 2018-04-02)
PROC: 02HV33Z Insertion of Infusion Device into Superior Vena Cava, Percutaneous Approach (ICD-10-PCS; 2018-04-03)
PROC: B548ZZA Ultrasonography of Superior Vena Cava, Guidance (ICD-10-PCS; 2018-04-03)
PROC: B5181ZA Fluoroscopy of Superior Vena Cava using Low Osmolar Contrast, Guidance (ICD-10-PCS; 2018-04-03)
PROC: 0JH63XZ Insertion of Tunneled Vascular Access Device into Chest Subcutaneous Tissue and Fascia, Percutaneous Approach (ICD-10-PCS; 2018-04-04)
PROC: 02H633Z Insertion of Infusion Device into Right Atrium, Percutaneous Approach (ICD-10-PCS; 2018-04-04)
PROC: B2141ZZ Fluoroscopy of Right Heart using Low Osmolar Contrast (ICD-10-PCS; 2018-04-04)
PROC: 30233K1 Transfusion of Nonautologous Frozen Plasma into Peripheral Vein, Percutaneous Approach (ICD-10-PCS; 2018-04-09)
PROC: 0TB03ZX Excision of Right Kidney, Percutaneous Approach, Diagnostic (ICD-10-PCS; 2018-04-09)
DX: N05.7 Unspecified nephritic syndrome with diffuse crescentic glomerulonephritis (principal); J18.1 Lobar pneumonia, unspecified organism; M31.7 Microscopic polyangiitis; N17.9 Acute kidney failure, unspecified; E44.0 Moderate protein-calorie malnutrition; N18.6 End stage renal disease; E66.01 Morbid (severe) obesity due to excess calories; E87.5 Hyperkalemia; D50.9 Iron deficiency anemia, unspecified; N39.0 Urinary tract infection, site not specified; K29.60 Other gastritis without bleeding; D63.1 Anemia in chronic kidney disease; N25.81 Secondary hyperparathyroidism of renal origin; R04.0 Epistaxis; R00.0 Tachycardia, unspecified; R79.89 Other specified abnormal findings of blood chemistry; R19.7 Diarrhea, unspecified; Z68.43 Body mass index [BMI] 50.0-59.9, adult; Z71.3 Dietary counseling and surveillance; Z87.891 Personal history of nicotine dependence; Z84.1 Family history of disorders of kidney and ureter
CPT/HCPCS: 36245; 36430; 36556; 36561; 50200; 76000; 76770; 76937; 78582; 81050; 82271; 82575; 83735; 83970; 84100; 84156; 84166; 84300; 84540; 85007; 85379; 86038; 86160; 86225; 86256; 86803; 86850; 86900; 86901; 86920; 86927; 87086; 87340; 87389; 87804; 88300; 88305; 88312; 93005; 93306; 93970; 94640; 96372; A9539; A9540; C9113; G0378; J0610; J0696; J0885; J1644; J1650; J2250; J2310; J2916; J2930; J3010; J3490; J7030; J7040; J7050; P9016; P9017; P9041